=== PATIENT | male | born 1965 | race Caucasian/White ===

== ENCOUNTER 2022-05-20 15:53 | Emergency (ER) | payer OTHER ==
[~2022-05-20] VITALS: Ht 185.4 cm; Wt 120.0 kg
[2022-05-20 16:14] VITALS: BP 162/92
[2022-05-20] MEDS ORDERED: OMNI-PAC300 MG PO (17:20)
[2022-05-20] MEDS ORDERED: ALL DAY10 MG PO (17:22)
== END 2022-05-20 17:44 | disposition home or self-care (01) | DRG 603 ==
LOC: ED 15:53
DX: L03.115 Cellulitis of right lower limb (principal); E11.9 Type 2 diabetes mellitus without complications; I10 Essential (primary) hypertension